=== PATIENT | female | born 1990 | race African-American/Black ===

== ENCOUNTER 2018-02-14 11:06 | Emergency (ER) | payer OTHER ==
--- NOTE | 2018-02-14 11:39 | ER Document Report ---
ED Medical Screen (RME) - General Chief Complaint: Pelvic Pain Stated Complaint: PELVIC PAIN Time Seen by Provider: 02/14/18 11:35 Mode of Arrival: Ambulatory Information source: Patient Notes: 27-year-old female presents with left lower quadrant abdominal pain for 1 week. She describes the pain as intermittent, cramping. She denies any dysuria, hematuria, nausea, vomiting, diarrhea. I have greeted and performed a rapid initial assessment of this patient. A comprehensive ED assessment and evaluation of the patient, analysis of test results and completion of medical decision making process we will be contacted by additional ED providers. PHYSICAL EXAMINATION: Vital signs reviewed GENERAL: Well-appearing, well-nourished and in no acute distress. LUNGS: No respiratory distress Musculoskeletal: Normal range of motion NEUROLOGICAL: Normal speech, normal gait. PSYCH: Normal mood, normal affect. SKIN: Warm, Dry, normal turgor, no rashes or lesions noted. TRAVEL OUTSIDE OF THE [place] IN LAST 30 DAYS: No - HPI Onset: Last week Onset/Duration: Gradual, Intermittent Quality of pain: Cramping Severity: Mild Associated Symptoms: denies: Diarrhea, Nausea, Vomiting Exacerbated by: Denies Relieved by: Denies Similar symptoms previously: Yes Recently seen / treated by doctor: No - Related Data Smoking: Non-smoker Frequency of alcohol use: None Drug Abuse: None Physical Exam - Vital signs Vitals: Temp Pulse Resp BP Pulse Ox 98.6 F 75 14 137/54 H 99 02/14/18 11:11 02/14/18 11:11 02/14/18 11:11 02/14/18 11:11 02/14/18 11:11 Course - Vital Signs Vital signs: Temp Pulse Resp BP Pulse Ox 98.6 F 75 14 137/54 H 99 02/14/18 11:11 02/14/18 11:11 02/14/18 11:11 02/14/18 11:11 02/14/18 11:11
[2018-02-14] MEDS ORDERED: IBUPROFEN 600 MG TABLET PO ONE (12:00)
[2018-02-14] MEDS ORDERED: ACETAMINOPHEN 325 MG TABLET PO ONE (12:00)
[2018-02-14 12:34] LABS: APPEARANCE,URINE SLIGHTLY-CLOUDY; BILIRUBIN,URINE NEGATIVE (NEGATIVE); COLOR,URINE YELLOW; GLUCOSE, URINE NEGATIVE (NEGATIVE); KETONES,URINE NEGATIVE (NEGATIVE); LEUKOCYTE ESTERASE,URINE NEGATIVE (NEGATIVE); NITRITE,URINE NEGATIVE (NEGATIVE); PROTEIN,URINE NEGATIVE (NEGATIVE); URINE SPECIFIC GRAVITY 1.021; UROBILINOGEN,URINE NEGATIVE mg/dL (<2.0)
--- NOTE | 2018-02-14 13:09 | RADIOLOGY REPORT (SQ) ---
EXAM DESCRIPTION: U/S NON OB PEL TV W/DOPPLER COMPLETED DATE/TIME: 02/14/2018 12:47 pm REASON FOR STUDY: Right pelvic pain COMPARISON: None. TECHNIQUE: Dynamic and static grayscale images acquired of the pelvis via transvaginal approach and recorded on PACS. Additional selected color Doppler and spectral images recorded. LIMITATIONS: None. FINDINGS: UTERUS: Contour normal. No mass. ENDOMETRIAL STRIPE: No focal or generalized thickening. No masses. CERVIX: Single nabothian cyst. RIGHT OVARY AND DOPPLER: Normal size. No worrisome masses. Normal arterial vascular flow without evid ence for torsion. LEFT OVARY AND DOPPLER: Normal size. Simple cyst measuring 3.6 x 3.5 x 3.2 cm. Almost certainly madelyn ign. No follow-up imaging recommended. No worrisome masses. Normal arterial vascular flow without e vidence for torsion. FREE FLUID: None noted. OTHER: No other significant finding. MEASUREMENTS: UTERUS: 8.5 x 3.3 x 4.4 cm ENDOMETRIAL STRIPE: 6 mm RIGHT OVARY: 2.6 x 2.6 x 2.1 cm LEFT OVARY: 5.7 x 4.1 x 3.7 cm IMPRESSION: NORMAL TRANSVAGINAL PELVIC ULTRASOUND. TECHNICAL DOCUMENTATION: JOB ID: [id number] [employer]- All Rights Reserved Rev-09/25 Reading location - IP/workstation name: [email or web address]
[2018-02-14 13:42] LABS: BACTERIA (WET MOUNT) 3+ BACTERIA SEEN; EPITHELIALS (WET MOUNT) 3+ EPITHELIALS SEEN; RBCS (WET MOUNT) NO RBCS SEEN; T.VAGINALIS (WET MOUNT) NO TRICHOMONAS SEEN; WBCS (WET MOUNT) 2+ WBCS SEEN; YEAST (WET MOUNT) NO YEAST SEEN
--- NOTE | 2018-02-14 14:02 | ER Document Report ---
ED General - General Chief Complaint: Pelvic Pain Stated Complaint: PELVIC PAIN Time Seen by Provider: 02/14/18 11:35 Mode of Arrival: Ambulatory TRAVEL OUTSIDE OF THE [place] IN LAST 30 DAYS: No - HPI Patient complains to provider of: Pelvic pain Notes: Patient coming in for evaluation pelvic pain on right side. Patient states also having slight vaginal discharge. Patient currently is not concerned about STDs. Denies any itching denies any fevers chills nausea vomiting diarrhea resting healthily. Pain is increased with movement. - Related Data Allergies/Adverse Reactions: No Known Allergies Allergy (Unverified 02/14/18 12:14) Past Medical History - General Information source: Patient - Social History Smoking Status: Unknown if Ever Smoked Frequency of alcohol use: None Drug Abuse: None Family History: Reviewed & Not Pertinent Patient has suicidal ideation: No Patient has homicidal ideation: No Renal/ Medical History: Denies: Hx Peritoneal Dialysis Review of Systems - Review of Systems Constitutional: No symptoms reported EENT: No symptoms reported Cardiovascular: No symptoms reported Respiratory: No symptoms reported Gastrointestinal: Abdominal pain Genitourinary: No symptoms reported Female Genitourinary: No symptoms reported Musculoskeletal: No symptoms reported Skin: No symptoms reported Hematologic/Lymphatic: No symptoms reported Neurological/Psychological: No symptoms reported -: Yes All other systems reviewed and negative Physical Exam - Vital signs Vitals: Temp Pulse Resp BP Pulse Ox 98.6 F 75 14 137/54 H 99 02/14/18 11:11 02/14/18 11:11 02/14/18 11:11 02/14/18 11:11 02/14/18 11:11 Interpretation: Normal - General General appearance: Appears well, Alert - HEENT Head: Normocephalic, Atraumatic Eyes: Normal Pupils: PERRL - Respiratory Respiratory status: No respiratory distress Chest status: Nontender Breath sounds: Normal Chest palpation: Normal - Cardiovascular Rhythm: Regular Heart sounds: Normal auscultation Murmur: No - Abdominal Inspection: Normal Distension: No distension Bowel sounds: Normal Tenderness: Nontender Organomegaly: No organomegaly - Genitourinary External exam: Normal Speculum exam: Vaginal discharge - Copious white Biman[place] exam: Normal - Back Back: Normal, Nontender - Extremities General upper extremity: Normal inspection, Nontender, Normal color, Normal ROM , Normal temperature General lower extremity: Normal inspection, Nontender, Normal color, Normal ROM , Normal temperature, Normal weight bearing. No: Natalie's sign - Neurological Neuro grossly intact: Yes Cognition: Normal Orientation: AAOx4 Dorota Coma Scale Eye Opening: Spontaneous [place] Coma Scale Verbal: Oriented [place] Coma Scale Motor: Obeys Commands Dorota Coma Scale Total: 15 Speech: Normal Motor strength normal: LUE, RUE, LLE, RLE Sensory: Normal - Psychological Associated symptoms: Normal affect, Normal mood - Skin Skin Temperature: Warm Skin Moisture: Dry Skin Color: Normal Course - Re-evaluation Re-evalutation: 02/15/18 20:59 Ultrasound shows signs of a right-sided ovarian cyst more likely causing the patient's pain along with BV on swabs. Patient was educated about because the baby will be treated with metronidazole. Patient states understanding of these findings and discharged home. The patient presents with abdominal pain without signs of peritonitis or other life-threatening or serious etiology. The patient appears stable for discharge and has been instructed to return immediately if the symptoms worsen in any way, or in 8-12hr if not improved for re-evaluation. The patient has been instructed to return if the symptoms worsen or change in any way. - Vital Signs Vital signs: Temp Pulse Resp BP Pulse Ox 98.6 F 56 L 16 128/62 H 97 02/14/18 11:11 02/14/18 14:15 02/14/18 14:15 02/14/18 14:15 02/14/18 14:15 Discharge - Discharge Clinical Impression: Left ovarian cyst, Bacterial vaginosis Condition: Good Disposition: HOME, SELF-CARE Instructions: Ovarian Cyst ([facility]), Pelvic Pain ([facility]), Vaginosis, Bacterial ([facility]) Additional Instructions: Your examination today shows a left ovarian cyst. More likely this is the etiology of her pain. The wet mount shows signs of a bacterial overgrowth, bacterial vaginosis which is more likely the reason for your vaginal discharge. 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 Prescriptions: Metronidazole [Metrogel 0.75% Vaginal Gel] 1 applic PV DAILY #1 tube Forms: Return to Work
[2018-02-14 14:16] VITALS: BP 128/62
[2018-02-14 15:14] LABS: CHLAM PCR NOT DETECTED (NOT DETECT); GON PCR NOT DETECTED (NOT DETECT)
== END 2018-02-14 14:16 | disposition home or self-care (01) ==
LOC: ER 11:06
DX: N83.202 Unspecified ovarian cyst, left side (principal); N76.0 Acute vaginitis; B96.89 Other specified bacterial agents as the cause of diseases classified elsewhere; R10.2 Pelvic and perineal pain
CPT/HCPCS: 76830; 81001; 81025; 87210; 87491; 87591; 93976; 99284

== ENCOUNTER 2018-10-22 22:00 | Emergency (ER) | payer OTHER ==
--- NOTE | 2018-10-22 23:27 | ER Document Report ---
ED Medical Screen (RME) - General Chief Complaint: Pelvic Pain Stated Complaint: LEFT HIP/PELVIC PAIN Time Seen by Provider: 10/22/18 23:25 Mode of Arrival: Ambulatory Information source: Patient Notes: 28-year-old female presented to ED for complaint of left hip and pelvic pain for 2 weeks. States her last menstrual period was October 20. She states she does have a history of left ovarian cyst. She had a LEEP procedure a year ago and a laparoscopy recently. 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 She states she does not drink smoke or use any drugs. She is alert oriented respirations regular and unlabored speaking in full sentences. She does have tenderness to palpation to the left pelvic area. I have greeted and performed a rapid initial assessment of this patient. A comprehensive ED assessment and evaluation of the patient, analysis of test results and completion of medical decision making process will be conducted by an additional ED providers. Dictation of this chart was performed using voice recognition software; therefore, there may be some unintended grammatical errors. TRAVEL OUTSIDE OF THE [place] IN LAST 30 DAYS: No - Related Data Allergies/Adverse Reactions: No Known Allergies Allergy (Verified 10/22/18 22:03) Past Medical History Renal/ Medical History: Denies: Hx Peritoneal Dialysis Physical Exam - Vital signs Vitals: Temp Pulse Resp BP Pulse Ox 98.1 F 71 20 152/77 H 97 10/22/18 22:05 10/22/18 22:05 10/22/18 22:05 10/22/18 22:05 10/22/18 22:05 Course - Vital Signs Vital signs: Temp Pulse Resp BP Pulse Ox 98.1 F 71 20 152/77 H 97 10/22/18 22:05 10/22/18 22:05 10/22/18 22:05 10/22/18 22:05 10/22/18 22:05
[2018-10-23 00:26] LABS: APPEARANCE,URINE CLEAR; BILIRUBIN,URINE NEGATIVE (NEGATIVE); COLOR,URINE YELLOW; GLUCOSE, URINE NEGATIVE (NEGATIVE); KETONES,URINE NEGATIVE (NEGATIVE); LEUKOCYTE ESTERASE,URINE NEGATIVE (NEGATIVE); NITRITE,URINE NEGATIVE (NEGATIVE); PROTEIN,URINE NEGATIVE (NEGATIVE); UROBILINOGEN,URINE NEGATIVE mg/dL (<2.0)
[2018-10-23 00:33] LABS: ABSOLUTE EOSINOPHILS # (AUTO) 0.2 10^3/uL (0.0-0.6); ABSOLUTE MONOCYTES (AUTO) 0.3 10^3/uL (0.1-1.4); BASOPHILS % (AUTO) 0.5 % (0-2); EOSINOPHILS % (AUTO) 4.7 % (0-6); HEMOGLOBIN 12.6 g/dL (12.0-15.5); LYMPHOCYTES % (AUTO) 43.9 % (13-45); MEAN CORPUSCULAR HEMOGLOBIN 28.9 pg (27.0-33.4); MEAN CORPUSCULAR HGB CONC 33.3 g/dL (32.0-36.0); MEAN CORPUSCULAR VOLUME 87 fl (80-97); MONOCYTES % (AUTO) 7.6 % (3-13); PLATELET COUNT 277 10^3/uL (150-450); RED BLOOD COUNT 4.38 10^6/uL (3.72-5.28); RED CELL DISTRIBUTION WIDTH 12.2 % (11.5-14.0); SEGMENTED NEUTROPHILS % (AUTO) 43.3 % (42-78); TOTAL CELLS COUNTED % (AUTO) 100 %; WHITE BLOOD COUNT 4.6 10^3/uL (4.0-10.5)
--- NOTE | 2018-10-23 00:36 | RADIOLOGY REPORT (SQ) ---
EXAM DESCRIPTION: CLINICAL HISTORY: 28 years Female left pelvic pain hx ovarian cyst COMPARISON: None. TECHNIQUE: Transvaginal duplex imaging performed to evaluate the pelvis. FINDINGS: Uterus measures 7.2 x 2.8 cm. Endometrial stripe 2 mm. The right ovary is normal in size measuring 3 x 1.9 cm with normal blood flow. Left ovary measures 2.7 x 1.9 cm with normal blood flow. No free fluid. IMPRESSION: No evidence of acute process
[2018-10-23 00:52] LABS: ALANINE AMINOTRANSFERASE 19 U/L (9-52); ALKALINE PHOSPHATASE 52 U/L (38-126); ANION GAP 6 (5-19); ASPARTATE AMINO TRANSFERASE 25 U/L (14-36); BILIRUBIN,DIRECT 0.2 mg/dL (0.0-0.4); BILIRUBIN,TOTAL 0.3 mg/dL (0.2-1.3); BLOOD UREA NITROGEN 11 mg/dL (7-20); CALCIUM 9.7 mg/dL (8.4-10.2); CARBON DIOXIDE 29 mmol/L (22-30); CHLORIDE 105 mmol/L (98-107); GLUCOSE 84 mg/dL (75-110); POTASSIUM 4.4 mmol/L (3.6-5.0); SODIUM 139.9 mmol/L (137-145); TOTAL PROTEIN 7.3 g/dL (6.3-8.2)
--- NOTE | 2018-10-23 02:31 | ER Document Report ---
ED General - General Chief Complaint: Pelvic Pain Stated Complaint: LEFT HIP/PELVIC PAIN Time Seen by Provider: 10/22/18 23:25 Mode of Arrival: Ambulatory Notes: Patient is a 28-year-old female without chronic medical problems who presents with complaints of 3 weeks of left adnexal pain. Describes as a mild, throbbin g, constant discomfort. Nothing seems to improve or worsen his pain. States that she had a cyst removed surgically from the left ovary approximately 3 months ago, did not have recurrence of pain until 3 weeks ago and states that the pain does feel very similar to how she felt prior to having surgery. She was concerned that she could have had a recurrence of a cyst. She has not had any vaginal bleeding or discharge. No fever or constitutional symptoms. She has not followed up with her SENIOR OPERATIONS MANAGER regarding today's concerns. TRAVEL OUTSIDE OF THE [place] IN LAST 30 DAYS: No - Related Data Allergies/Adverse Reactions: No Known Allergies Allergy (Verified 10/22/18 22:03) Past Medical History - General Information source: Patient - Social History Smoking Status: Never Smoker Frequency of alcohol use: None Drug Abuse: None Lives with: Spouse/Significant other Family History: Reviewed & Not Pertinent Patient has suicidal ideation: No Patient has homicidal ideation: No Renal/ Medical History: Denies: Hx Peritoneal Dialysis Review of Systems - Review of Systems Notes: Constitutional: Negative for fever. HENT: Negative for sore throat. Eyes: Negative for visual changes. Cardiovascular: Negative for chest pain. Respiratory: Negative for shortness of breath. Gastrointestinal: Positive for lower abdominal pain Genitourinary: Negative for dysuria. Musculoskeletal: Negative for back pain. Skin: Negative for rash. Neurological: Negative for headaches, weakness or numbness. 10 point ROS negative except as marked above and in HPI. Physical Exam - Vital signs Vitals: Temp Pulse Resp BP Pulse Ox 98.1 F 71 20 152/77 H 97 10/22/18 22:05 10/22/18 22:05 10/22/18 22:05 10/22/18 22:05 10/22/18 22:05 Interpretation: Hypertensive Notes: PHYSICAL EXAMINATION: GENERAL: Well-appearing, well-nourished and in no acute distress. HEAD: Atraumatic, normocephalic. EYES: Pupils equal round and reactive to light, extraocular movements intact, sclera anicteric, conjunctiva are normal. ENT: nares patent, oropharynx clear without exudates. Moist mucous membranes. NECK: Normal range of motion, supple without lymphadenopathy LUNGS: Breath sounds clear to auscultation bilaterally and equal. No wheezes rales or rhonchi. HEART: Regular rate and rhythm without murmurs ABDOMEN: Soft, nontender, normoactive bowel sounds. No guarding, no rebound. No masses appreciated. EXTREMITIES: Normal range of motion, no pitting or edema. No cyanosis. NEUROLOGICAL: No focal neurological deficits. Moves all extremities spontaneously and on command. PSYCH: Normal mood, normal affect. SKIN: Warm, Dry, normal turgor, no rashes or lesions noted. Course - Re-evaluation Re-evalutation: 10/23/18 02:28 Patient presents with 2 to 3 weeks of continuous pain to her left adnexal region. On exam the patient is very well in appearance, no focal abdominal tenderness on exam except mildly over the left adnexa. No areas of rebound or guarding. No vaginal bleeding or discharge. Transvaginal ultrasound without any evidence of acute pathology. Labs likewise unremarkable. The patient has not yet followed up with her SENIOR OPERATIONS MANAGER postoperatively regarding this ongoing pain and advised her to do so as there is consideration for possible postoperative adhesions versus a alternative surgical complication. Have also advised that this could be a normal postoperative variant but that this is outside my area of practice. At this point does not appear to be related to any surgical or life- threatening pathology, advised patient that she is to return for any new or worsening symptoms. At this time will discharge with return precautions and follow-up recommendations. Verbal discharge instructions given a the bedside and opportunity for questions given. Medication warnings reviewed. Patient is in agreement with this plan and has verbalized understanding of return precautions and the need for primary care follow-up in the next 24-72 hours. - Vital Signs Vital signs: Temp Pulse Resp BP Pulse Ox 98.4 F 65 18 136/72 H 98 10/23/18 02:40 10/23/18 02:40 10/23/18 02:40 10/23/18 02:40 10/23/18 02:40 - Laboratory Result Diagrams: 10/23/18 00:02 10/23/18 00:02 Laboratory results interpreted by me: 10/23/18 00:02 Urine Blood SMALL H - Diagnostic Test Radiology reviewed: Reports reviewed Discharge - Discharge Clinical Impression: Left lower quadrant abdominal pain of unknown etiology Condition: Good Disposition: HOME, SELF-CARE Additional Instructions: Your ultrasound and labs are normal tonight. The exact cause of your pain is uncertain but is over the area of your ovary and could be related to scar tissue from your surgery, or could be normal in the postoperative period. Please follow-up with your SENIOR OPERATIONS MANAGER at your earliest ability ideally within the next 24 to 48 hours. Return if you develop a fever greater than 100.4 F area, pass out, worsening pain, or any other symptoms that are worrisome to you.
[2018-10-23 03:10] VITALS: BP 136/72
== END 2018-10-23 02:45 | disposition home or self-care (01) ==
LOC: ER 22:00
DX: R10.32 Left lower quadrant pain (principal); R10.2 Pelvic and perineal pain; Z98.890 Other specified postprocedural states; Z87.42 Personal history of other diseases of the female genital tract
CPT/HCPCS: 36415; 76830; 80053; 81001; 84702; 85025; 99284

== ENCOUNTER 2019-07-16 17:54 | Emergency (ER) | payer OTHER ==
[2019-07-16 18:39] LABS: APPEARANCE,URINE CLEAR; BILIRUBIN,URINE NEGATIVE (NEGATIVE); COLOR,URINE YELLOW; GLUCOSE, URINE NEGATIVE (NEGATIVE); KETONES,URINE NEGATIVE (NEGATIVE); LEUKOCYTE ESTERASE,URINE NEGATIVE (NEGATIVE); NITRITE,URINE NEGATIVE (NEGATIVE); PROTEIN,URINE NEGATIVE (NEGATIVE); URINE SPECIFIC GRAVITY 1.028; UROBILINOGEN,URINE NEGATIVE mg/dL (<2.0)
[2019-07-16 18:45] LABS: ABSOLUTE EOSINOPHILS # (AUTO) 0.1 10^3/uL (0.0-0.6); ABSOLUTE LYMPHOCYTES (AUTO) 1.5 10^3/uL (0.5-4.7); ABSOLUTE MONOCYTES (AUTO) 0.3 10^3/uL (0.1-1.4); ABSOLUTE NEUT (AUTO) 3.1 10^3/uL (1.7-8.2); BASOPHILS % (AUTO) 0.3 % (0-2); EOSINOPHILS % (AUTO) 2.8 % (0-6); HEMATOCRIT 36.1 % (36.0-47.0); HEMOGLOBIN 12.5 g/dL (12.0-15.5); LYMPHOCYTES % (AUTO) 29.1 % (13-45); MEAN CORPUSCULAR HEMOGLOBIN 30.5 pg (27.0-33.4); MEAN CORPUSCULAR HGB CONC 34.8 g/dL (32.0-36.0); MEAN CORPUSCULAR VOLUME 88 fl (80-97); MONOCYTES % (AUTO) 5.8 % (3-13); PLATELET COUNT 261 10^3/uL (150-450); RED BLOOD COUNT 4.11 10^6/uL (3.72-5.28); RED CELL DISTRIBUTION WIDTH 12.7 % (11.5-14.0); TOTAL CELLS COUNTED % (AUTO) 100 %
[2019-07-16 19:02] LABS: ALBUMIN 4.1 g/dL (3.5-5.0); ALKALINE PHOSPHATASE 57 U/L (38-126); ANION GAP 6 (5-19); ASPARTATE AMINO TRANSFERASE 23 U/L (14-36); BILIRUBIN,TOTAL 0.3 mg/dL (0.2-1.3); BLOOD UREA NITROGEN 15 mg/dL (7-20); CALCIUM 9.2 mg/dL (8.4-10.2); CARBON DIOXIDE 27 mmol/L (22-30); CHLORIDE 105 mmol/L (98-107); GLUCOSE 108 mg/dL (75-110); POTASSIUM 4.2 mmol/L (3.6-5.0); TOTAL PROTEIN 7.4 g/dL (6.3-8.2)
--- NOTE | 2019-07-16 19:22 | ER Document Report ---
ED GI/ - General Chief Complaint: Abdominal Pain Stated Complaint: ABDOMINAL CRAMPS/NAUSEA Time Seen by Provider: 07/16/19 19:10 Mode of Arrival: Ambulatory Information source: Patient Notes: Patient is an otherwise healthy 29-year-old female presenting to the emergency department with low abdominal cramping, vaginal bleeding and nausea. Patient reports she had an elective on 07/02/2019. She reports she was approximately 9 weeks at that time. She states that she has felt dizzy and has had nausea over the last week. She states that she took a home test which was positive. She states she has not been sexually active since the elective . She is a G1, P0. TRAVEL OUTSIDE OF THE [place] IN LAST 30 DAYS: No - Related Data Allergies/Adverse Reactions: No Known Allergies Allergy (Verified 07/16/19 18:05) Home Medications: dietary supplements Past Medical History - General Information source: Patient - Social History Smoking Status: Never Smoker Chew tobacco use (# tins/day): No Frequency of alcohol use: None Drug Abuse: None Family History: Reviewed & Not Pertinent Patient has suicidal ideation: No Patient has homicidal ideation: No - Medical History Medical History: Negative Renal/ Medical History: Denies: Hx Peritoneal Dialysis Surgical Hx: Negative - Immunizations Immunizations up to date: Yes Review of Systems - Review of Systems Constitutional: See HPI EENT: No symptoms reported Cardiovascular: No symptoms reported Respiratory: No symptoms reported Gastrointestinal: See HPI Genitourinary: No symptoms reported Female Genitourinary: See HPI Musculoskeletal: No symptoms reported Skin: No symptoms reported Hematologic/Lymphatic: No symptoms reported Neurological/Psychological: No symptoms reported Physical Exam - Vital signs Vitals: Temp Pulse Resp BP Pulse Ox 97.9 F 89 16 132/71 H 100 07/16/19 18:06 07/16/19 18:06 07/16/19 18:06 07/16/19 18:06 07/16/19 18:06 - Notes Notes: PHYSICAL EXAMINATION: GENERAL: Well-appearing, well-nourished and in no acute distress. HEAD: Atraumatic, normocephalic. EYES: Pupils equal round and reactive to light, extraocular movements intact, conjunctiva are normal. ENT: Nares patent, oropharynx clear without exudates. Moist mucous membranes. NECK: Normal range of motion, supple without lymphadenopathy LUNGS: Breath sounds clear to auscultation bilaterally and equal. No wheezes rales or rhonchi. HEART: Regular rate and rhythm without murmurs ABDOMEN: Soft, nontender, nondistended abdomen. No guarding, no rebound. No masses appreciated. Female : deferred Musculoskeletal: Normal range of motion, no pitting or edema. No cyanosis. NEUROLOGICAL: Cranial nerves grossly intact. Normal speech, normal gait. Normal sensory, motor exams PSYCH: Normal mood, normal affect. SKIN: Warm, Dry, normal turgor, no rashes or lesions noted. Course - Re-evaluation Re-evalutation: Patient appears well, nontoxic, CBC and CMP unremarkable. hCG is 149. This is to be expected post elective . Patient states that her bleeding has slowed down and is now describing it as a spotting. She states that she has not been drinking much water. Patient will be discharged home with prescription for Zofran. She will be instructed to increase her water intake which should help with the dizziness. She will be instructed to follow-up with primary care and she was also given strict ED return precautions. Patient verbalized understanding and agreement with this plan. - Vital Signs Vital signs: Temp Pulse Resp BP Pulse Ox 97.9 F 89 16 132/71 H 100 07/16/19 18:06 07/16/19 18:06 07/16/19 18:06 07/16/19 18:06 07/16/19 18:06 - Laboratory Result Diagrams: 07/16/19 18:10 07/16/19 18:10 Laboratory results interpreted by me: 07/16/19 07/16/19 18:10 18:10 Beta HCG, Quant 149.57 H Urine Ascorbic Acid 40 H Discharge - Discharge Clinical Impression: Abdominal cramping, Vaginal bleeding, Nausea Condition: Stable Disposition: HOME, SELF-CARE Additional Instructions: Your hormone levels have dropped significantly. They should continue to do so. Please take the antinausea medication as prescribed. Please drink plenty of fluids as this will help with your symptoms and dizziness. Follow-up with your primary care provider for recheck in 1 week. Return sooner if worseni ng or you start bleeding vaginally through more than 1 pad per hour for 4 hours consecutively. Prescriptions: Ondansetron [Zofran Odt 4 mg Tablet] 1 - 2 tab PO Q4H PRN #15 tab.rapdis PRN Reason: For Nausea/Vomiting
[2019-07-16] MEDS ORDERED: ONDANSETRON ODT 4 MG TAB (6 TAB/ER DISP) PO PRN (19:31)
[2019-07-16 20:09] VITALS: BP 119/70
== END 2019-07-16 20:13 | disposition home or self-care (01) ==
LOC: ER 17:54
DX: R10.30 Lower abdominal pain, unspecified (principal); N93.8 Other specified abnormal uterine and vaginal bleeding; R11.0 Nausea
CPT/HCPCS: 36415; 80053; 81001; 83690; 84702; 85025; 99284

== ENCOUNTER 2019-07-30 14:20 | Emergency (ER) | payer OTHER ==
[2019-07-30] MEDS ORDERED: ACETAMINOPHEN 325 MG TABLET PO ONE (14:29)
[2019-07-30 14:32] VITALS: BP 134/61
--- NOTE | 2019-07-30 14:33 | ER Document Report ---
ED Extremity Problem, Lower - General Chief Complaint: Ankle Injury Stated Complaint: LEFT ANKLE PAIN, SWELLING Time Seen by Provider: 07/30/19 14:28 Primary Care Provider: GEMA JULIAN JR, DO [ACTIVE PROVISIONAL STAFF] - Follow up as needed Mode of Arrival: Ambulatory Notes: 29 -year-old female presents to ED for complaint of pain to the left lateral ankle. She states she did fall last week and sprained her ankle was seen at the [facility]. She states she fell again today injuring her ankle again around 10 AM. She states the ankle is swelling and more painful. She has come to be reexamined for this ankle. We will order an x-ray some Tylenol and then follow- up with the x-ray results. TRAVEL OUTSIDE OF THE [place] IN LAST 30 DAYS: No - HPI Patient complains to provider of: Injury, Pain, Swelling Location: Ankle Occurred: Last week - Last week and again this week Where: Home, Outdoors Onset/Duration: Intermittent Quality of pain: Achy, Sharp Severity: Moderate Pain Level: 3 Context: Twisted Recent injury: Yes Associated symptoms: Painful ambulation Exacerbated by: Hanging down, Movement, Walking Relieved by: Elevation, Ice, Rest - Related Data Allergies/Adverse Reactions: No Known Allergies Allergy (Verified 07/16/19 18:05) Past Medical History - General Information source: Patient - Social History Smoking Status: Never Smoker Frequency of alcohol use: None Drug Abuse: None Lives with: Family Family History: Reviewed & Not Pertinent Patient has suicidal ideation: No Patient has homicidal ideation: No - Past Medical History Cardiac Medical History: Reports: None Pulmonary Medical History: Reports: None EENT Medical History: Reports: None Neurological Medical History: Reports: None Endocrine Medical History: Reports: None Renal/ Medical History: Reports: None Malignancy Medical History: Reports: None GI Medical History: Reports: None Musculoskeletal Medical History: Reports Hx Musculoskeletal Trauma Skin Medical History: Reports None Psychiatric Medical History: Reports: None Traumatic Medical History: Reports: None Infectious Medical History: Reports: None Surgical Hx: Negative Past Surgical History: Reports: None - Immunizations Immunizations up to date: Yes Hx Diphtheria, Pertussis, Tetanus Vaccination: Yes Review of Systems - Review of Systems Constitutional: No symptoms reported EENT: No symptoms reported Cardiovascular: No symptoms reported Respiratory: No symptoms reported Gastrointestinal: No symptoms reported Genitourinary: No symptoms reported Female Genitourinary: No symptoms reported Musculoskeletal: Leg swelling - Pain swelling bruising lateral aspect of ankle Skin: No symptoms reported Hematologic/Lymphatic: No symptoms reported Neurological/Psychological: No symptoms reported -: Yes All other systems reviewed and negative Physical Exam - Vital signs Vitals: Temp Pulse Resp BP Pulse Ox 98.0 F 88 16 134/61 H 97 07/30/19 14:23 07/30/19 14:23 07/30/19 14:23 07/30/19 14:23 07/30/19 14:23 Interpretation: Normal - General General appearance: Appears well, Alert - HEENT Head: Normocephalic, Atraumatic Eyes: Normal Pupils: PERRL - Respiratory Respiratory status: No respiratory distress Chest status: Nontender Breath sounds: Normal Chest palpation: Normal - Cardiovascular Rhythm: Regular Heart sounds: Normal auscultation Murmur: No - Abdominal Inspection: Normal Distension: No distension Bowel sounds: Normal Tenderness: Nontender Organomegaly: No organomegaly - Back Back: Normal, Nontender - Extremities General upper extremity: Normal inspection, Nontender, Normal color, Normal ROM, Normal temperature General lower extremity: Normal temperature. No: Natalie's sign Ankle: Tender, Ecchymosis, Edema, Limited ROM - Neurological Neuro grossly intact: Yes Cognition: Normal Orientation: AAOx4 [place] Coma Scale Eye Opening: Spontaneous [place] Coma Scale Verbal: Oriented [place] Coma Scale Motor: Obeys Commands [place] Coma Scale Total: 15 Speech: Normal Motor strength normal: LUE, RUE, LLE, RLE Sensory: Normal - Psychological Associated symptoms: Normal affect, Normal mood - Skin Skin Temperature: Warm Skin Moisture: Dry Skin Color: Normal Course - Re-evaluation Re-evalutation: 07/30/19 15:18 The patient is nontoxic appearing with stable vitals. They are afebrile. Ankle exam shows no deformities with no obvious ligament instability. There is a normal pulse and sensation distally. There is no redness or signs of infection. X-rays show no acute fracture per the radiologist. Patient will be placed in an Steve wrap for comfort. Crutches will be offered and given if requested. Patient will be instructed to follow-up with not better in 1 week, sooner for increasing pain, fever, redness, numbness, tingling, weakness, any further concerns. Patient will be instructed to rest, ice, elevate their ankle. - Vital Signs Vital signs: Temp Pulse Resp BP Pulse Ox 98.0 F 88 16 134/61 H 97 07/30/19 14:23 07/30/19 14:23 07/30/19 14:23 07/30/19 14:23 07/30/19 14:23 - Diagnostic Test Radiology reviewed: Image reviewed, Reports reviewed Procedures - Immobilization Left Ankle Time completed: 15:19 Immobilizer type: Steve wrap, Ankle stirrup Performed by: Provider assisted, PCT Post-Proc Neuro Vasc Exam: Normal Alignment checked and good: Yes Discharge - Discharge Clinical Impression: Ankle sprain Qualifiers: Encounter type: initial encounter Involved ligament of ankle: unspecified ligament Laterality: left Qualified Code(s): S93.402A - Sprain of unspecified ligament of left ankle, initial encounter Condition: Stable Disposition: HOME, SELF-CARE Additional Instructions: SPRAINED ANKLE: Your sprained ankle results from stretching or tearing of the ligaments which support the ankle. This usually results from twisting the foot inward and under. The ligaments will require time and protection in order to heal properly. Many ankle sprains are quite disabling, and should be taken seriously. The usual treatment for an ankle sprain is cold packs; protection with tape, splints, or wraps; elevation; and staying off the ankle for at least a day. As the ankle improves, you can walk IF it's not painful to bear weight. Sports are best postponed until healing is complete. More serious sprains usually require strengthening exercises after early healing. Your physician has assessed the seriousness of the ligament injury to your ankle. However, the treatment may change, depending on how your ankle progresses. If further exams were recommended, it is important that you follow through. Call the doctor if your foot becomes numb, painful, or severely swollen. ANKLE STIRRUP SPLINT: You are to use an ankle brace called a stirrup splint. This type of brace allows you to place greater stresses on the ankle without risk of re-injury, and is often used for more severe ankle injuries such as avulsion fractures and ligament ruptures. The splint can be worn over a sock or tape. For proper support, wear the splint with a shoe over it. It's important that the splint fit properly. Adjust the heel tension, if needed. If your splint has air bladders, peel back the bottom of each air bladder, then move the Velcro attachment of the heel strap up or down. Air bladder pressure can be adjusted by pulling up the valve at the top, threading the air tube down into the main bladder, then blowing air into the bladder or squeezing it out. The two sides of the stirrup can be moved forward or back on your ankle by changing the attachment of the main straps. If you are unable to use the ankle comfortably in the splint, return for re-evaluation. STEVE WRAP: A compression dressing (steve wrap) has been placed. This helps hold the area still. It limits swelling and internal bleeding. The wrap should be comfortably snug -- not tight. You should feel a sense of pressure, but not severe pain under the wrap. Unless the physician tells you otherwise, you can adjust the wrap for comfort. If the wrap causes symptoms suggesting it's too tight -- uncomfortable pressure, swelling or discoloration beyond the wrap, numbness, or severe pain -- you must loosen the wrap. If these symptoms don't resolve promptly, return for re-evaluation. ICE & ELEVATION: Apply ice packs frequently against the painful area. Many different schedules are recommended, such as "20 minutes on, 20 minutes off" or "one hour ice, two hours rest." If you need to work, you may need to go longer between ice treatments. You should plan to have the area ice packed AT LEAST one-fourth of the time. The ice should be applied over the wrap, tape, or splint, or over a layer of cloth -- not directly against the skin. Some ice bags have a built-in cloth and can be put directly on the skin. Your injured part should be elevated as much as possible over the next 48 hours. Try to keep the injury above the level of the heart. Avoid use of the injured area. Elevation and rest will decrease the swelling. USE OF [id number] IBUPROFEN: Ibuprofen (Advil, Nuprin, Medipren, Motrin IB) is a medication for fever and pain control. In addition, it has anti- inflammatory effects which may be beneficial, especially in the treatment of injuries. It's best to take ibuprofen with food. Persons with ulcer disease or allergy to aspirin should notify their physician of this before taking ibuprofen. Ibuprofen can be given every four to six hours, for a total of four doses daily. Age Pain or fever dose Antiinflammatory dose 6-8 yr 200 mg (1 tab) 200 mg (1 tab) 9-11 yr 200 mg (1 tab) 200-400 mg (1-2 tab) 11-14 yr 200-400 mg (1-2 tab) 400 mg (2 tab) 15-adult 400 mg (2 tab) 600 mg (3 tab) Acetaminophen Acetaminophen may be taken for pain relief or fever control. It's much safer than aspirin, offering a wider range of "safe" dosages. It is safe during . Some brand names are Tylenol, Panadol, Datril, Anacin 3, Tempra, and Liquiprin. Acetaminophen can be repeated every four hours. The following are maximum recommended dosages: WEIGHT Dose Drops Elixir Chewable(80mg) (LBS.) drprs=droppers tsp=teaspoon 6 40 mg .4 ml (1/2) 6-11 80 mg .8 ml (full) 1/2 tsp 1 tab 12-16 120 mg 1 1/2 drprs 3/4 tsp 1 1/2 tabs 17-23 160 mg 2 drprs 1 tsp 2 tabs 24-30 240 mg 3 drprs 1 1/2 tsp 3 tabs 30-35 320 mg 2 tsp 4 tabs 36-41 360 mg 2 1/4 tsp 4 1/2 tabs 42-47 400 mg 2 1/2 tsp 5 tabs 48-53 480 mg 3 tsp 6 tabs 54-59 520 mg 3 1/4 tsp 6 1/2 tabs 60-64 560 mg 3 1/2 tsp 7 tabs 65-70 600 mg 3 3/4 tsp 7 1/2 tabs 71-76 640 mg 4 tsp 8 tabs 77-82 720 mg 4 1/2 tsp 9 tabs 83-88 800 mg 5 tsp 10 tabs >89 pounds or adults 650 mg to 900 mg Acetaminophen can be repeated every four hours. Maximum daily dose not to exceed 4000 mg. These maximum recommended dosages are slightly higher than the dosages written on the product container, but these dosages are very safe and well below the toxic dosage for acetaminophen. Ankle Exercise Program To restore the ankle to normal, it's important to strengthen the muscles that support it -- especially those that lift the foot upward. Good muscle tone will keep stress off the injury while it heals. EARLY - Once the doctor allows you to walk on the ankle, you can begin. Lean your back against a wall. Standing on your heels, lift the balls of both feet up, hold a second, then back down. Work up to 100 repetitions. Next, using the wall for balance, stand on one foot. Lift the heel up, then down. Work up to 100 repetitions for each foot. BALANCE TRAINING - To retrain the ankle to react to "tipping", stand on one foot for two minutes. Go from flat-footed to standing on the toes and back again slowly. Repeat with the other foot. LATER - When your ankle has regained full motion and you're walking pain- free, begin exercise against resistance. In a sitting position, pull the top of the foot towards you against resistance 20 times. Use either elastic material or a weight attached to the toes. Swing the knee so the foot is to the side of the body, and repeat. FOLLOW-UP CARE: If you have been referred to a physician for follow-up care, call the physicians office for an appointment as you were instructed or within the next two days. If you experience worsening or a significant change in your symptoms, notify the physician immediately or return to the Emergency Department at any time for re-evaluation. Forms: Return to Work Referrals: GEMA JULIAN JR, [ACTIVE PROVISIONAL STAFF] - Follow up as needed
--- NOTE | 2019-07-30 14:56 | RADIOLOGY REPORT (SQ) ---
EXAM DESCRIPTION: ANKLE LEFT COMPLETE COMPLETED DATE/TIME: 07/30/2019 2:38 pm REASON FOR STUDY: pain and injury left ankle COMPARISON: None. NUMBER OF VIEWS: Three views. TECHNIQUE: AP, lateral, and oblique radiographic images acquired of the left ankle. LIMITATIONS: None. FINDINGS: MINERALIZATION: Normal. BONES: No acute fracture or dislocation. No worrisome bone lesions. JOINTS: No effusions. SOFT TISSUES: No soft tissue swelling. No foreign body. OTHER: No other significant finding. IMPRESSION: NEGATIVE STUDY OF THE LEFT ANKLE. NO RADIOGRAPHIC EVIDENCE OF ACUTE INJURY. TECHNICAL DOCUMENTATION: JOB ID: [id number] 2010 [employer]- All Rights Reserved Reading location - IP/workstation name: [email or web address]
== END 2019-07-30 15:17 | disposition home or self-care (01) ==
LOC: ER 14:20
DX: S93.402A Sprain of unspecified ligament of left ankle, initial encounter (principal); W19.XXXA Unspecified fall, initial encounter; Y92.009 Unspecified place in unspecified non-institutional (private) residence as the place of occurrence of the external cause
CPT/HCPCS: 99283

== ENCOUNTER 2020-03-26 09:44 | Emergency (ER) | payer OTHER ==
[2020-03-26] MEDS ORDERED: LIDOCAINE 2% VISCOUS SOLN 15 ML UDCUP PO ONE (11:08)
[2020-03-26] MEDS ORDERED: IBUPROFEN 800 MG TABLET PO ONE (11:08)
--- NOTE | 2020-03-26 13:05 | ER Document Report ---
HPI - HPI Patient complains to provider of: Sore throat Time Seen by Provider: 03/26/20 10:35 Onset/Duration: Persistent Quality of pain: Achy Pain Level: 1 Context: Patient presents complaining of sore throat for the past 3 weeks. Patient denies any fever, cough, nausea or vomiting. Patient denies any concerns for Covid. Patient denies any history of acid reflux. Associated Symptoms: Sore throat. denies: Nonproductive cough, Fever, Headache, Nausea, Vomiting Exacerbated by: Denies Relieved by: Denies Similar symptoms previously: No Recently seen / treated by doctor: No - ROS ROS below otherwise negative: Yes Systems Reviewed and Negative: Yes All other systems reviewed and negative - CONSTITUTIONAL Constitutional: DENIES: Fever, Chills - EENT EENT: REPORTS: Sore Throat - RESPIRATORY Respiratory: DENIES: Coughing - GASTROINTESTINAL Gastrointestinal: DENIES: Nausea, Patient vomiting, Diarrhea - REPRODUCTIVE Reproductive: DENIES: : - DERM Skin Color: Normal Skin Problems: None Past Medical History - General Information source: Patient - Social History Smoking Status: Never Smoker Frequency of alcohol use: None Drug Abuse: None 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 Family History: Reviewed & Not Pertinent Patient has homicidal ideation: No - Medical History Medical History: Negative Pulmonary Medical History: Denies: Hx Asthma Endocrine Medical History: Denies: Hx Diabetes Mellitus Type 2 Renal/ Medical History: Denies: Hx Peritoneal Dialysis Musculoskeletal Medical History: Reports Hx Musculoskeletal Trauma Surgical Hx: Negative - Immunizations Immunizations up to date: Yes Hx Diphtheria, Pertussis, Tetanus Vaccination: Yes Vertical Provider Document - CONSTITUTIONAL Agree With Documented VS: Yes Exam Limitations: No Limitations General Appearance: WD/WN, No Apparent Distress - INFECTION CONTROL TRAVEL OUTSIDE OF THE [place] IN LAST 30 DAYS: No - HEENT HEENT: Atraumatic, Normocephalic, Pharyngeal Tenderness, Pharyngeal Erythema. negative: Pharyngeal Exudate, Tympanic Membrane Red, Tympanic Membrane Bulging - NECK Neck: Normal Inspection, Supple. negative: Lymphadenopathy-Left, Lymphadenopathy-Right - RESPIRATORY Respiratory: Breath Sounds Normal, No Respiratory Distress - CARDIOVASCULAR Cardiovascular: Regular Rate, Regular Rhythm, No Murmur - BACK Back: Normal Inspection - MUSCULOSKELETAL/EXTREMETIES Musculoskeletal/Extremeties: MONICO MCKAY - NEURO Level of Consciousness: Awake, Alert, Appropriate Motor/Sensory: No Motor Deficit - DERM Integumentary: Warm, Dry, No Rash Course - Re-evaluation Re-evalutation: 03/26/20 13:04 Patient is monitoring rapid strep test negative at this time. Throat culture is pending. 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 Good return precautions discussed with patient. - Vital Signs Vital signs: Temp Pulse Resp BP Pulse Ox 98.1 F 78 18 140/53 H 100 03/26/20 10:06 03/26/20 10:06 03/26/20 10:06 03/26/20 10:06 03/26/20 10:06 - Laboratory Laboratory results interpreted by me: 03/26/20 13:04 Labs- All tests 24 hr 03/26/20 03/26/20 11:05 11:05 Monotest NEGATIVE Group A Strep Rapid NEGATIVE Discharge - Discharge Clinical Impression: Sore throat Condition: Stable Disposition: HOME, SELF-CARE Instructions: Sore Throat ([facility]) Additional Instructions: Return immediately for any new or worsening symptoms Followup with your primary care provider, call tomorrow to make a followup appointment Culture is pending, we will call if you need any different treatment Referrals: [facility] [Provider Group] - Follow up as needed
[2020-03-26 13:42] VITALS: BP 131/77
== END 2020-03-26 14:08 | disposition home or self-care (01) ==
LOC: ER 09:44
DX: J02.9 Acute pharyngitis, unspecified (principal)
CPT/HCPCS: 99282; 36415; 87070; 87880; 86308; J3490